=== PATIENT | female | born 1990 | race Caucasian/White ===

== ENCOUNTER 2016-07-04 21:52 | Emergency (ER) | payer MEDICAID ==
[2016-07-04] MEDS ORDERED: Sodium Chloride 0.9% 1,000 ML IV ONE ×2 (21:58→22:42)
[2016-07-04] MEDS ORDERED: Ondansetron 4 MG/2 ML SDV IV ONE (22:04)
[2016-07-04 22:07] VITALS: BP 110/75
[2016-07-04 22:36] LABS: CHLORIDE,CL 105 mmol/L (101-111); SODIUM,NA 135 mmol/L (135-145)
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
[2016-07-04] MEDS ORDERED: Famotidine 20 MG/2 ML SDV IVPUSH ONE (23:13)
[2016-07-04] MEDS ORDERED: Loperamide 2 MG Cap PO ONE (23:14)
[2016-07-04] MEDS ORDERED: Ondansetron 4 MG Tab.DIS PO ONE (23:34)
[2016-07-04] MEDS ORDERED: Ondansetron 4 MG Tab.DIS ONE (23:34)
== END 2016-07-04 23:45 | disposition home or self-care (01) ==
LOC: DL.ED 21:52
DX: K52.9 Noninfective gastroenteritis and colitis, unspecified (principal); R11.14 Bilious vomiting; F17.210 Nicotine dependence, cigarettes, uncomplicated; G89.29 Other chronic pain; M54.9 Dorsalgia, unspecified; G43.909 Migraine, unspecified, not intractable, without status migrainosus; F43.10 Post-traumatic stress disorder, unspecified; Z79.899 Other long term (current) drug therapy; Z88.8 Allergy status to other drugs, medicaments and biological substances; Z88.6 Allergy status to analgesic agent
CPT/HCPCS: 36415; 80053; 81001; 82150; 83690; 84703; 85025; 96365; 96375; 99284; A9270; J2405; J7030; S0028

== ENCOUNTER 2016-07-13 16:56 | Emergency (ER) | payer OTHER, MEDICAID ==
[2016-07-13 17:13] VITALS: BP 124/76
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
== END 2016-07-13 18:15 | disposition home or self-care (01) ==
LOC: DL.ED 16:56
DX: S23.3XXA Sprain of ligaments of thoracic spine, initial encounter (principal); S33.5XXA Sprain of ligaments of lumbar spine, initial encounter; S16.1XXA Strain of muscle, fascia and tendon at neck level, initial encounter; J45.909 Unspecified asthma, uncomplicated; K21.9 Gastro-esophageal reflux disease without esophagitis; F32.9 Major depressive disorder, single episode, unspecified; F17.210 Nicotine dependence, cigarettes, uncomplicated; Z88.6 Allergy status to analgesic agent; Z79.899 Other long term (current) drug therapy; Z98.890 Other specified postprocedural states; V43.92XA Unspecified car occupant injured in collision with other type car in traffic accident, initial encounter
CPT/HCPCS: 72040; 72070; 72100; 99283

== ENCOUNTER 2016-07-28 21:16 | Emergency (ER) | payer MEDICAID ==
[2016-07-28 21:25] VITALS: BP 122/76
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
[2016-07-28 23:05] LABS: CHLORIDE,CL 111 mmol/L (101-111); SODIUM,NA 141 mmol/L (135-145)
== END 2016-07-28 23:16 | disposition home or self-care (01) ==
LOC: DL.ED 21:16
DX: R10.33 Periumbilical pain (principal); J45.909 Unspecified asthma, uncomplicated; K21.9 Gastro-esophageal reflux disease without esophagitis; F32.9 Major depressive disorder, single episode, unspecified; F17.210 Nicotine dependence, cigarettes, uncomplicated; Z98.890 Other specified postprocedural states; Z88.6 Allergy status to analgesic agent; Z79.899 Other long term (current) drug therapy
CPT/HCPCS: 36415; 80053; 80305; 81001; 81025; 82150; 83690; 85025; 99284

== ENCOUNTER 2016-09-18 22:21 | Emergency (ER) | payer MEDICAID ==
[2016-09-18 23:42] VITALS: BP 119/72
[2016-09-19] MEDS ORDERED: Amoxicillin 500 MG Cap PO ONE (00:22)
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
== END 2016-09-19 00:36 | disposition home or self-care (01) ==
LOC: DL.ED 22:21
DX: J06.9 Acute upper respiratory infection, unspecified (principal); K21.9 Gastro-esophageal reflux disease without esophagitis; J45.909 Unspecified asthma, uncomplicated; G43.909 Migraine, unspecified, not intractable, without status migrainosus; Z79.899 Other long term (current) drug therapy; Z88.8 Allergy status to other drugs, medicaments and biological substances
CPT/HCPCS: 87081; 87430; 99283; A9270

== ENCOUNTER 2016-10-21 00:34 | Emergency (ER) | payer MEDICAID ==
[2016-10-21] MEDS ORDERED: Albuterol/Ipratropium 3.0-0.5 MG/3 ML Neb Soln NEB ONE (00:36)
[2016-10-21 00:40] VITALS: BP 125/75
[2016-10-21] MEDS ORDERED: predniSONE 10 MG Tab PO ONE (02:02)
[2016-10-21] MEDS ORDERED: Benzonatate 100 MG Cap PO ONE (02:02)
[2016-10-21] MEDS ORDERED: Azithromycin 250 MG Tab PO ONE (02:03)
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
== END 2016-10-21 02:15 | disposition home or self-care (01) ==
LOC: DL.ED 00:34
DX: J20.9 Acute bronchitis, unspecified (principal); K21.9 Gastro-esophageal reflux disease without esophagitis; J45.909 Unspecified asthma, uncomplicated; F32.9 Major depressive disorder, single episode, unspecified; G43.909 Migraine, unspecified, not intractable, without status migrainosus; Z79.899 Other long term (current) drug therapy; Z88.6 Allergy status to analgesic agent; Z98.890 Other specified postprocedural states
CPT/HCPCS: 94640; 99284; A9270

== ENCOUNTER 2016-11-22 08:44 | Emergency (ER) | payer MEDICAID ==
[2016-11-22 09:13] VITALS: BP 96/63
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
--- NOTE | 2016-11-22 09:49 | CR ---
CLINICAL HISTORY: 26-year-old female with right hand pain (injured "getting up") for the past 7 days . INTERPRETATION: Isolated tiny cyst head of the third metacarpal. No arthritic degenerative joint elsa nges. No foreign body, inflammatory periostitis, right hand or wrist fracture/dislocation. CONCLUSION: Negative exam.
== END 2016-11-22 10:23 | disposition home or self-care (01) ==
LOC: DL.ED 08:44
DX: S60.221A Contusion of right hand, initial encounter (principal); F17.210 Nicotine dependence, cigarettes, uncomplicated; K21.9 Gastro-esophageal reflux disease without esophagitis; Z98.890 Other specified postprocedural states; Z79.899 Other long term (current) drug therapy; Z88.6 Allergy status to analgesic agent; Z88.5 Allergy status to narcotic agent; W22.09XA Striking against other stationary object, initial encounter
CPT/HCPCS: 73130-RT; 99284

== ENCOUNTER 2016-12-29 22:32 | Emergency (ER) | payer MEDICAID ==
[2016-12-29 22:37] VITALS: BP 118/78
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
[2016-12-29 23:14] LABS: CHLORIDE,CL 107 mmol/L (101-111); SODIUM,NA 140 mmol/L (135-145)
== END 2016-12-29 23:36 | disposition home or self-care (01) ==
LOC: DL.ED 22:32
DX: R55 Syncope and collapse (principal); J45.909 Unspecified asthma, uncomplicated; K21.9 Gastro-esophageal reflux disease without esophagitis; F32.9 Major depressive disorder, single episode, unspecified; F43.10 Post-traumatic stress disorder, unspecified; F17.210 Nicotine dependence, cigarettes, uncomplicated; Z98.890 Other specified postprocedural states; Z79.899 Other long term (current) drug therapy; Z88.6 Allergy status to analgesic agent
CPT/HCPCS: 36415; 80053; 84703; 85025; 99284

== ENCOUNTER 2017-01-14 21:14 | Emergency (ER) | payer MEDICAID ==
[2017-01-14] MEDS ORDERED: Amoxicillin/Clavulanate K 875-125 MG Tab PO ONE (21:15)
[2017-01-14 23:31] VITALS: BP 123/76
[2017-01-15] MEDS ORDERED: Amoxicillin/Clavulanate K 875-125 MG Tab ONE (00:01)
== END 2017-01-15 00:20 | disposition home or self-care (01) ==
LOC: DL.ED 21:14
DX: J06.9 Acute upper respiratory infection, unspecified (principal)
CPT/HCPCS: 99283; A9270

== ENCOUNTER 2017-01-17 08:33 | Emergency (ER) | payer MEDICAID ==
[2017-01-17 08:48] VITALS: BP 115/70
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
== END 2017-01-17 09:11 | disposition home or self-care (01) ==
LOC: DL.ED 08:33
DX: R09.81 Nasal congestion (principal); R05 Cough; F17.210 Nicotine dependence, cigarettes, uncomplicated; G43.909 Migraine, unspecified, not intractable, without status migrainosus; Z79.899 Other long term (current) drug therapy; Z98.890 Other specified postprocedural states; Z90.49 Acquired absence of other specified parts of digestive tract
CPT/HCPCS: 99283

== ENCOUNTER 2017-01-18 17:04 | Emergency (ER) | payer MEDICAID ==
[2017-01-18 18:18] VITALS: BP 123/82
== END 2017-01-18 18:25 | disposition left against medical advice (07) ==
LOC: DL.ED 17:04
DX: Z53.20 Procedure and treatment not carried out because of patient's decision for unspecified reasons (principal)

== ENCOUNTER 2017-02-04 23:09 | Emergency (ER) | payer MEDICAID ==
[2017-02-04 23:37] VITALS: BP 121/72
[2017-02-05] MEDS ORDERED: Amoxicillin/Clavulanate K 875-125 MG Tab PO ONE (00:21)
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
== END 2017-02-05 00:28 | disposition home or self-care (01) ==
LOC: DL.ED 23:09
DX: N39.0 Urinary tract infection, site not specified (principal); J45.909 Unspecified asthma, uncomplicated; K21.9 Gastro-esophageal reflux disease without esophagitis; F32.9 Major depressive disorder, single episode, unspecified; F17.210 Nicotine dependence, cigarettes, uncomplicated; Z98.890 Other specified postprocedural states; Z79.899 Other long term (current) drug therapy; Z88.6 Allergy status to analgesic agent
CPT/HCPCS: 81001; 81025; 87086; 99283; A9270; 87077; 87186

== ENCOUNTER 2017-03-21 17:10 | Emergency (ER) | payer MEDICAID ==
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
[2017-03-21 18:02] VITALS: BP 126/86
== END 2017-03-21 18:36 | disposition home or self-care (01) ==
LOC: DL.ED 17:10
DX: N76.1 Subacute and chronic vaginitis (principal); F17.210 Nicotine dependence, cigarettes, uncomplicated; Z88.6 Allergy status to analgesic agent; Z88.5 Allergy status to narcotic agent
CPT/HCPCS: 81001; 81025; 87070; 87210; 99283

== ENCOUNTER 2017-03-30 20:57 | Emergency (ER) | payer MEDICAID ==
[2017-03-30] MEDS ORDERED: traMADol 50 MG Tab PO ONE (20:58)
[2017-03-30 21:24] VITALS: BP 121/70
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
[2017-03-30] MEDS ORDERED: traMADol 50 MG Tab ONE (22:29)
== END 2017-03-30 22:40 | disposition home or self-care (01) ==
LOC: DL.ED 20:57
DX: S93.401A Sprain of unspecified ligament of right ankle, initial encounter (principal); F17.210 Nicotine dependence, cigarettes, uncomplicated; Z88.5 Allergy status to narcotic agent; Z79.899 Other long term (current) drug therapy; X50.1XXA Overexertion from prolonged static or awkward postures, initial encounter
CPT/HCPCS: 73600-RT; 99283; A9270-GY

== ENCOUNTER 2017-04-07 19:12 | Emergency (ER) | payer MEDICAID ==
[2017-04-07 20:42] VITALS: BP 118/73
== END 2017-04-07 22:00 | disposition left against medical advice (07) ==
LOC: DL.ED 19:12
DX: Z53.21 Procedure and treatment not carried out due to patient leaving prior to being seen by health care provider (principal)

== ENCOUNTER 2017-04-08 10:00 | Emergency (ER) | payer MEDICAID ==
[2017-04-08 10:07] VITALS: BP 126/71
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
--- NOTE | 2017-04-08 11:27 | CR ---
CLINICAL HISTORY: 26-year-old female with left ankle and foot pain (injury). INTERPRETATION: Three views left foot reveal no sign of fracture or joint dislocation. No foreign bodies.
--- NOTE | 2017-04-08 11:28 | CR ---
CLINICAL HISTORY: 26-year-old female with left ankle pain (injury). INTERPRETATION: Three views left ankle unremarkable. Minimal soft tissue swelling and no appreciable ankle effusion. No sign of left ankle fracture or dislocation.
== END 2017-04-08 11:36 | disposition home or self-care (01) ==
LOC: DL.ED 10:00
DX: S93.402A Sprain of unspecified ligament of left ankle, initial encounter (principal); S90.32XA Contusion of left foot, initial encounter; K21.9 Gastro-esophageal reflux disease without esophagitis; F17.210 Nicotine dependence, cigarettes, uncomplicated; Z79.899 Other long term (current) drug therapy; Z88.6 Allergy status to analgesic agent; W22.8XXA Striking against or struck by other objects, initial encounter; Y92.89 Other specified places as the place of occurrence of the external cause
CPT/HCPCS: 73610-LT; 73630-LT; 99283

== ENCOUNTER 2017-04-26 21:20 | Emergency (ER) | payer MEDICAID ==
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
[2017-04-26 22:52] VITALS: BP 105/53
== END 2017-04-26 23:24 | disposition home or self-care (01) ==
LOC: DL.ED 21:20
DX: G43.909 Migraine, unspecified, not intractable, without status migrainosus (principal); J45.909 Unspecified asthma, uncomplicated; K21.9 Gastro-esophageal reflux disease without esophagitis; F32.9 Major depressive disorder, single episode, unspecified; F17.210 Nicotine dependence, cigarettes, uncomplicated; Z79.899 Other long term (current) drug therapy; Z88.6 Allergy status to analgesic agent
CPT/HCPCS: 81003; 81025; 99282

== ENCOUNTER 2017-05-03 23:16 | Emergency (ER) | payer MEDICAID ==
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
[2017-05-04 00:26] VITALS: BP 116/73
== END 2017-05-04 01:12 | disposition home or self-care (01) ==
LOC: DL.ED 23:16
DX: N93.8 Other specified abnormal uterine and vaginal bleeding (principal); F17.210 Nicotine dependence, cigarettes, uncomplicated; Z88.5 Allergy status to narcotic agent; Z88.8 Allergy status to other drugs, medicaments and biological substances; Z79.899 Other long term (current) drug therapy
CPT/HCPCS: 36415; 84703; 85025; 99283

== ENCOUNTER 2017-05-06 20:31 | Emergency (ER) | payer MEDICAID ==
[2017-05-06 20:44] VITALS: BP 117/75
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
[2017-05-06 21:42] LABS: ANION GAP 15.6; CHLORIDE,CL 103 mmol/L (101-111); SODIUM,NA 136 mmol/L (135-145)
== END 2017-05-06 22:09 | disposition home or self-care (01) ==
LOC: DL.ED 20:31
DX: R10.30 Lower abdominal pain, unspecified (principal); J45.909 Unspecified asthma, uncomplicated; K21.9 Gastro-esophageal reflux disease without esophagitis; F32.9 Major depressive disorder, single episode, unspecified; F17.210 Nicotine dependence, cigarettes, uncomplicated; Z79.899 Other long term (current) drug therapy; Z88.6 Allergy status to analgesic agent
CPT/HCPCS: 36415; 80053; 81001; 84703; 85025; 99283

== ENCOUNTER 2017-05-24 11:52 | Emergency (ER) | payer MEDICAID ==
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
[2017-05-24 14:26] VITALS: BP 111/67
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
== END 2017-05-24 14:34 | disposition home or self-care (01) ==
LOC: DL.ED 11:52
DX: S80.01XA Contusion of right knee, initial encounter (principal); S30.0XXA Contusion of lower back and pelvis, initial encounter; J45.909 Unspecified asthma, uncomplicated; K21.9 Gastro-esophageal reflux disease without esophagitis; F32.9 Major depressive disorder, single episode, unspecified; F17.210 Nicotine dependence, cigarettes, uncomplicated; Z79.899 Other long term (current) drug therapy; Z88.6 Allergy status to analgesic agent; Y04.0XXA Assault by unarmed brawl or fight, initial encounter
CPT/HCPCS: 72100; 73564-RT; 99284

== ENCOUNTER 2017-05-29 12:32 | Emergency (ER) | payer MEDICAID ==
[2017-05-29] MEDS ORDERED: Sodium Chloride 0.9% 1,000 ML IV ONE (13:04)
[2017-05-29 13:36] LABS: ANION GAP 11.5; CHLORIDE,CL 105 mmol/L (101-111); SODIUM,NA 136 mmol/L (135-145)
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
[2017-05-29 15:24] VITALS: BP 104/60
--- NOTE | 2017-06-24 10:52 | EKG ---
05/29/2017 - MARCIO OLIVARES - EKG is sinus rhythm with a rate of 94. Normal AR interval, normal axis. EKG is within normal limits. [facility] /[id number]
== END 2017-05-29 15:22 | disposition home or self-care (01) ==
LOC: DL.ED 12:32
DX: O99.89 Other specified diseases and conditions complicating pregnancy, childbirth and the puerperium (principal); R55 Syncope and collapse; O99.331 Smoking (tobacco) complicating pregnancy, first trimester; F17.210 Nicotine dependence, cigarettes, uncomplicated; Z88.5 Allergy status to narcotic agent; Z88.8 Allergy status to other drugs, medicaments and biological substances; Z79.899 Other long term (current) drug therapy
CPT/HCPCS: 36415; 80053; 80305; 81001; 84702; 84703; 85025; 93005; 99284; J7030

== ENCOUNTER 2017-06-03 19:20 | Emergency (ER) | payer MEDICAID ==
[2017-06-03 23:45] VITALS: BP 115/68
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
== END 2017-06-03 23:54 | disposition home or self-care (01) ==
LOC: DL.ED 19:20
DX: O20.0 Threatened abortion (principal); O99.612 Diseases of the digestive system complicating pregnancy, second trimester; K21.9 Gastro-esophageal reflux disease without esophagitis; O99.512 Diseases of the respiratory system complicating pregnancy, second trimester; J45.909 Unspecified asthma, uncomplicated; O99.332 Smoking (tobacco) complicating pregnancy, second trimester; F17.210 Nicotine dependence, cigarettes, uncomplicated; Z3A.19 19 weeks gestation of pregnancy; Z79.899 Other long term (current) drug therapy; Z88.6 Allergy status to analgesic agent
CPT/HCPCS: 36415; 80305; 81001; 81025; 84702; 84703; 85025; 99284

== ENCOUNTER 2017-06-20 12:37 | Emergency (ER) | payer MEDICAID ==
[2017-06-20 13:13] VITALS: BP 106/68
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
== END 2017-06-20 14:12 | disposition home or self-care (01) ==
LOC: DL.ED 12:37
DX: F32.9 Major depressive disorder, single episode, unspecified (principal); F17.210 Nicotine dependence, cigarettes, uncomplicated; Z88.5 Allergy status to narcotic agent; Z88.8 Allergy status to other drugs, medicaments and biological substances
CPT/HCPCS: 99284

== ENCOUNTER 2017-06-27 22:38 | Emergency (ER) | payer MEDICAID ==
[2017-06-27 23:00] VITALS: BP 125/73
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
== END 2017-06-28 01:03 | disposition home or self-care (01) ==
LOC: DL.ED 22:38
DX: R42 Dizziness and giddiness (principal); R10.13 Epigastric pain; F17.210 Nicotine dependence, cigarettes, uncomplicated; Z88.5 Allergy status to narcotic agent; Z88.8 Allergy status to other drugs, medicaments and biological substances
CPT/HCPCS: 36415; 84703; 85014; 85018; 99283

== ENCOUNTER 2017-07-17 23:53 | Emergency (ER) | payer MEDICAID ==
[2017-07-18 00:01] VITALS: BP 106/86
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
== END 2017-07-18 01:26 | disposition home or self-care (01) ==
LOC: DL.ED 23:53
DX: O99.89 Other specified diseases and conditions complicating pregnancy, childbirth and the puerperium (principal); R42 Dizziness and giddiness; O99.331 Smoking (tobacco) complicating pregnancy, first trimester; F17.210 Nicotine dependence, cigarettes, uncomplicated; Z88.6 Allergy status to analgesic agent; Z88.5 Allergy status to narcotic agent; Z79.899 Other long term (current) drug therapy; Z3A.01 Less than 8 weeks gestation of pregnancy
CPT/HCPCS: 36415; 81001; 81025; 85014; 85018; 99284

== ENCOUNTER 2017-08-11 23:34 | Emergency (ER) | payer MEDICAID ==
[2017-08-12] MEDS ORDERED: Sodium Chloride 0.9% 10 ML Syringe FLUSH PRN (01:36)
[2017-08-12] MEDS ORDERED: Metoclopramide 10 MG/2 ML SDV IVPUSH ONE (01:36)
[2017-08-12] MEDS ORDERED: Acetaminophen 325 MG Tab PO ONE (01:37)
[2017-08-12] MEDS ORDERED: Sodium Chloride 0.9% 1,000 ML IV ONE (01:38)
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
[2017-08-12 02:32] VITALS: BP 100/51
== END 2017-08-12 02:36 | disposition home or self-care (01) ==
LOC: DL.ED 23:34
DX: O99.89 Other specified diseases and conditions complicating pregnancy, childbirth and the puerperium (principal); R51 Headache; O99.611 Diseases of the digestive system complicating pregnancy, first trimester; K21.9 Gastro-esophageal reflux disease without esophagitis; O99.331 Smoking (tobacco) complicating pregnancy, first trimester; F17.210 Nicotine dependence, cigarettes, uncomplicated; Z88.6 Allergy status to analgesic agent; Z88.5 Allergy status to narcotic agent; Z79.899 Other long term (current) drug therapy; Z3A.09 9 weeks gestation of pregnancy
CPT/HCPCS: 96361; 96374; 99283; A9270; J2765; J7030

== ENCOUNTER 2017-08-30 22:39 | Emergency (ER) | payer MEDICAID ==
[2017-08-30 22:56] VITALS: BP 117/83
[2017-08-30] MEDS ORDERED: Acetaminophen 325 MG Tab PO ONE (23:03)
--- NOTE | 2017-08-31 06:13 | ER ---
SUBJECTIVE: The patient is a 26-year-old female, who was at home climbing down some stairs and she missed the last step or so, she injured her left ankle. It has some tenderness and swelling mostly laterally. She denies any head trauma, chest trauma, back trauma, upper extremity trauma. No bleeding. No loss of consciousness. She is . She does not take any medicines. She has no vaginal bleeding or discharge or any problems in that regard. PAST MEDICAL HISTORY: Significant for: 1. GERD. 2. . 3. T and A. 4. Had her wisdom teeth pulled. 5. Asthma. 6. History of kidney stones. 7. Migraine headaches. CURRENT MEDICATIONS: Include: 1. Omeprazole 20 mg p.o. daily. 2. vitamins. ALLERGIES: 1. Ibuprofen gives her headache. 2. Percocet gives her headache. REVIEW OF SYSTEMS: No chest pain, shortness of breath. No nausea, vomiting, fevers. No recent infection. No bleeding. No bowel or bladder changes. No vaginal bleeding or discharge. After fall, she is here for her left ankle pain. Please see HPI. SOCIAL HISTORY: She does use cigarettes, and uses soda. OBJECTIVE: Vital Signs: Stable. She is afebrile. General: Pleasant, good historian. There is ice on her left ankle now when she comes in. She is laughing, smiling, in no distress. HEENT: Normocephalic, atraumatic. Extremities: Focused examination of her lower extremities, shows the left mostly lateral ankle somewhat tender. There is no deformity. No crepitus. She has good pulses. Good capillary refill. Wiggles her toes. Her calf is nontender. Knee is nontender. The head of the metatarsal and sole of the foot are nontender. IMAGING: X-ray is obtained. There is no fracture or deformity or dislocation. ASSESSMENT: Left ankle sprain. PLAN: Rest, ice, compression. She can take Tylenol for meds. Followup with her PCP in clinic as needed. [facility] /[id number]
== END 2017-08-30 23:52 | disposition home or self-care (01) ==
LOC: DL.ED 22:39
DX: O9A.211 Injury, poisoning and certain other consequences of external causes complicating pregnancy, first trimester (principal); S93.402A Sprain of unspecified ligament of left ankle, initial encounter; O99.331 Smoking (tobacco) complicating pregnancy, first trimester; F17.210 Nicotine dependence, cigarettes, uncomplicated; W10.9XXA Fall (on) (from) unspecified stairs and steps, initial encounter; Z88.6 Allergy status to analgesic agent; Z3A.11 11 weeks gestation of pregnancy
CPT/HCPCS: 73610-LT; 99283; A9270-GY

== ENCOUNTER 2017-10-06 22:15 | Emergency (ER) | payer MEDICAID ==
[2017-10-06 22:40] VITALS: BP 98/54
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
== END 2017-10-07 00:28 | disposition home or self-care (01) ==
LOC: DL.ED 22:15
DX: O9A.212 Injury, poisoning and certain other consequences of external causes complicating pregnancy, second trimester (principal); S93.401A Sprain of unspecified ligament of right ankle, initial encounter; O99.332 Smoking (tobacco) complicating pregnancy, second trimester; F17.210 Nicotine dependence, cigarettes, uncomplicated; W18.40XA Slipping, tripping and stumbling without falling, unspecified, initial encounter; Z88.6 Allergy status to analgesic agent; Z88.8 Allergy status to other drugs, medicaments and biological substances; Z3A.17 17 weeks gestation of pregnancy
CPT/HCPCS: 73600-RT; 99283

== ENCOUNTER 2017-11-17 18:03 | Emergency (ER) | payer MEDICAID ==
[2017-11-17 18:45] VITALS: BP 112/59
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
== END 2017-11-17 20:55 | disposition home or self-care (01) ==
LOC: DL.ED 18:03
DX: S93.432A Sprain of tibiofibular ligament of left ankle, initial encounter (principal); F17.210 Nicotine dependence, cigarettes, uncomplicated; X50.1XXA Overexertion from prolonged static or awkward postures, initial encounter; Z88.6 Allergy status to analgesic agent
CPT/HCPCS: 73610-LT; 99283

== ENCOUNTER 2018-01-21 16:27 | Emergency (ER) | payer MEDICAID ==
[2018-01-21 16:55] VITALS: BP 111/58
[2018-01-21] MEDS ORDERED: Bacitracin Oint 1 GM U/D Packet TOP ONE (17:01)
[2018-01-21] MEDS ORDERED: Acetaminophen 325 MG Tab PO ONE (17:12)
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
== END 2018-01-21 17:36 | disposition home or self-care (01) ==
LOC: DL.ED 16:27
DX: S61.432A Puncture wound without foreign body of left hand, initial encounter (principal); F17.210 Nicotine dependence, cigarettes, uncomplicated; Z88.6 Allergy status to analgesic agent; W26.8XXA Contact with other sharp object(s), not elsewhere classified, initial encounter
CPT/HCPCS: 99282; A9270

== ENCOUNTER 2018-02-07 12:14 | Emergency (ER) | payer MEDICAID ==
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
[2018-02-07 12:24] VITALS: BP 109/71
== END 2018-02-07 12:53 | disposition home or self-care (01) ==
LOC: DL.ED 12:14
DX: O99.513 Diseases of the respiratory system complicating pregnancy, third trimester (principal); J20.8 Acute bronchitis due to other specified organisms; J02.8 Acute pharyngitis due to other specified organisms; J45.909 Unspecified asthma, uncomplicated; O99.613 Diseases of the digestive system complicating pregnancy, third trimester; K21.9 Gastro-esophageal reflux disease without esophagitis; O99.333 Smoking (tobacco) complicating pregnancy, third trimester; F17.210 Nicotine dependence, cigarettes, uncomplicated; Z88.6 Allergy status to analgesic agent; Z88.5 Allergy status to narcotic agent; Z79.899 Other long term (current) drug therapy; Z3A.28 28 weeks gestation of pregnancy
CPT/HCPCS: 99282

== ENCOUNTER 2018-10-29 23:46 | Emergency (ER) | payer MEDICAID ==
[2018-10-30 00:21] VITALS: BP 115/71
[2018-10-30 01:01] LABS: ANION GAP 13.5; CHLORIDE,CL 107 mmol/L (101-111); SODIUM,NA 137 mmol/L (135-145)
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
== END 2018-10-30 01:37 | disposition home or self-care (01) ==
LOC: DL.ED 23:46
DX: N95.1 Menopausal and female climacteric states (principal); K21.9 Gastro-esophageal reflux disease without esophagitis; F41.9 Anxiety disorder, unspecified; F17.210 Nicotine dependence, cigarettes, uncomplicated; J45.909 Unspecified asthma, uncomplicated; F32.9 Major depressive disorder, single episode, unspecified; Z79.899 Other long term (current) drug therapy; Z88.6 Allergy status to analgesic agent
CPT/HCPCS: 36415; 80048; 81001; 84443; 84703; 85025; 99283

== ENCOUNTER 2019-11-01 00:01 | Emergency (ER) | payer MEDICAID ==
[2019-11-01 00:25] VITALS: BP 115/59; PULSE 73
[2019-11-01] MEDS ORDERED: Amoxicillin/Clavulanate K 875-125 MG Tab PO ONE (00:41)
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
== END 2019-11-01 00:51 | disposition home or self-care (01) ==
LOC: DL.ED 00:01
DX: J01.91 Acute recurrent sinusitis, unspecified (principal); J45.909 Unspecified asthma, uncomplicated; K21.9 Gastro-esophageal reflux disease without esophagitis; F17.210 Nicotine dependence, cigarettes, uncomplicated; Z88.6 Allergy status to analgesic agent; Z88.5 Allergy status to narcotic agent
CPT/HCPCS: 99283; A9270-GY

== ENCOUNTER 2020-03-09 21:17 | Emergency (ER) | payer MEDICAID ==
[2020-03-09 21:41] VITALS: BP 108/72; PULSE 88
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
--- NOTE | 2020-03-09 22:56 | CT ---
PROCEDURE INFORMATION: Exam: CT Abdomen And Pelvis Without Contrast Exam date and time: 03/09/2020 10:22 PM Age: 29 years old Clinical indication: Other: Left lower abdominal pain TECHNIQUE: Imaging protocol: Computed tomography of the abdomen and pelvis without contrast. Radiation optimization: All CT scans at this facility use at least one of these dose optimization techniques: automated exposure control; mA and/or kV adjustment per patient size (includes targeted exams where dose is matched to clinical indication); or iterative reconstruction. COMPARISON: No relevant prior studies available. FINDINGS: Lungs: The visualized lung bases are clear. Liver: The liver is normal. Gallbladder and bile ducts: The gallbladder is contracted. There is no evidence of biliary ductal dilation. Pancreas: The pancreas is normal. Spleen: The spleen is normal. Adrenal glands: The adrenal glands are normal. Kidneys and ureters: The kidneys are normal. No hydronephrosis. No visible calculi. Stomach and bowel: There is a moderate amount of colonic content identified. Changes regarding the colon are equivocal. There is the suggestion of very mild wall thickening. This questionable abnormality involves the distal transverse and left colon. There is no evidence of colonic diverticulosis. Non-specific/nonobstructive intestinal gas pattern. Appendix: A normal appendix is identified. Intraperitoneal space: No free air. No free fluid. Vasculature: There is no aortic aneurysm. Lymph nodes: No pelvic adenopathy. There is no adenopathy. Urinary bladder: Bladder is normal. Reproductive: The uterus is normal. No adnexal mass. Bones/joints: No acute bony findings are identified. Soft tissues: No acute soft tissue abnormalities are identified. IMPRESSION: 1. Changes regarding the distal transverse and left colon are equivocal. This may merely reflect incomplete distention. Subtle diffuse nonspecific colitis however cannot be ruled out entirely. Correlate with clinical data. Potential etiologies would include infectious processes, inflammatory processes, as well as ischemic etiologies. 2. A normal appendix is identified. 3. There is no evidence of colonic diverticulosis.
[2020-03-09 22:59] LABS: ANION GAP 13.7 mEq/L (7-13); CHLORIDE,CL 103 mmol/L (98-107); SODIUM,NA 139 mmol/L (136-145)
== END 2020-03-09 23:26 | disposition home or self-care (01) ==
LOC: DL.ED 21:17
DX: K29.00 Acute gastritis without bleeding (principal); J45.909 Unspecified asthma, uncomplicated; F17.210 Nicotine dependence, cigarettes, uncomplicated; Z88.6 Allergy status to analgesic agent; Z88.5 Allergy status to narcotic agent
CPT/HCPCS: 36415; 74176; 80053; 81001; 83605; 85025; 87040; 99284-25

== ENCOUNTER 2020-06-22 20:01 | Emergency (ER) | payer MEDICAID ==
[2020-06-22 20:29] VITALS: BP 106/70; PULSE 95
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
== END 2020-06-22 21:31 | disposition home or self-care (01) ==
LOC: DL.ED 20:01
DX: S60.221A Contusion of right hand, initial encounter (principal); J45.909 Unspecified asthma, uncomplicated; K21.9 Gastro-esophageal reflux disease without esophagitis; Z72.0 Tobacco use; Z88.6 Allergy status to analgesic agent; Z88.8 Allergy status to other drugs, medicaments and biological substances; Z79.899 Other long term (current) drug therapy; W22.8XXA Striking against or struck by other objects, initial encounter
CPT/HCPCS: 73130-RT; 99283

== ENCOUNTER 2020-06-29 15:21 | Emergency (ER) | payer MEDICAID ==
[2020-06-29 15:53] VITALS: BP 110/70; PULSE 71
== END 2020-06-29 18:18 | disposition left against medical advice (07) ==
LOC: DL.ED 15:21
DX: Z53.21 Procedure and treatment not carried out due to patient leaving prior to being seen by health care provider (principal)
CPT/HCPCS: 81001

== ENCOUNTER 2020-07-10 09:42 | Emergency (ER) | payer MEDICAID, OTHER ==
[2020-07-10 09:55] VITALS: BP 120/87; PULSE 102
[2020-07-10] MEDS ORDERED: Ondansetron 4 MG Tab.DIS PO ONE (09:56)
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
== END 2020-07-10 10:16 | disposition home or self-care (01) ==
LOC: DL.ED 09:42
DX: K52.9 Noninfective gastroenteritis and colitis, unspecified (principal); J45.909 Unspecified asthma, uncomplicated; K21.9 Gastro-esophageal reflux disease without esophagitis; G43.909 Migraine, unspecified, not intractable, without status migrainosus; Z79.899 Other long term (current) drug therapy; Z88.6 Allergy status to analgesic agent; Z88.5 Allergy status to narcotic agent
CPT/HCPCS: 99283; A9270; 99282

== ENCOUNTER 2020-08-02 11:50 | Emergency (ER) | payer MEDICAID, OTHER ==
[2020-08-02 12:06] VITALS: BP 106/76; PULSE 81
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
--- NOTE | 2020-08-02 12:51 | CR ---
PROCEDURE INFORMATION: Exam: XR Right Ankle Exam date and time: 08/02/2020 12:23 PM Age: 29 years old Clinical indication: Other: Foot and ankle pain after fall TECHNIQUE: Imaging protocol: XR Right ankle. Views: 1 or 2 views. COMPARISON: CR Ankle 2V Rt 10/06/2017 11:31 PM FINDINGS: Bones/joints: Normal. Soft tissues: Normal. IMPRESSION: No acute findings.
--- NOTE | 2020-08-02 12:52 | CR ---
PROCEDURE INFORMATION: Exam: XR Right Foot Exam date and time: 08/02/2020 12:28 PM Age: 29 years old Clinical indication: Other: Foot and ankle pain after fall TECHNIQUE: Imaging protocol: XR Right foot. Views: 1 or 2 views. COMPARISON: CR Ankle 2V Rt 08/02/2020 12:23 PM FINDINGS: Bones/joints: Normal. Soft tissues: Normal. IMPRESSION: No acute findings.
== END 2020-08-02 13:20 | disposition home or self-care (01) ==
LOC: DL.ED 11:50
DX: S93.401A Sprain of unspecified ligament of right ankle, initial encounter (principal); J45.909 Unspecified asthma, uncomplicated; K21.9 Gastro-esophageal reflux disease without esophagitis; Z72.0 Tobacco use; Z88.6 Allergy status to analgesic agent; Z88.5 Allergy status to narcotic agent; Z79.899 Other long term (current) drug therapy; X50.1XXA Overexertion from prolonged static or awkward postures, initial encounter; Y93.01 Activity, walking, marching and hiking; Y92.009 Unspecified place in unspecified non-institutional (private) residence as the place of occurrence of the external cause
CPT/HCPCS: 73600-RT; 73620-RT; 99283; 99284-25

== ENCOUNTER 2020-11-27 09:55 | Emergency (ER) | payer MEDICAID ==
[2020-11-27 10:08] VITALS: BP 126/71; PULSE 86
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
[2020-11-27 10:40] LABS: ANION GAP 17.2 mEq/L (7-13); CHLORIDE,CL 105 mmol/L (98-107); SODIUM,NA 142 mmol/L (136-145)
[2020-11-27] MEDS ORDERED: Sodium Chloride 0.9% 1,000 ML IV ONE (10:41)
--- NOTE | 2020-11-27 13:28 | CT ---
PROCEDURE INFORMATION: Exam: CT Abdomen And Pelvis Without Contrast Exam date and time: 11/27/2020 12:30 PM Age: 30 years old Clinical indication: Abdominal pain; Localized; Left lower quadrant (llq); Additional info: Left lower abdominal pain TECHNIQUE: Imaging protocol: Computed tomography of the abdomen and pelvis without contrast. Radiation optimization: All CT scans at this facility use at least one of these dose optimization techniques: automated exposure control; mA and/or kV adjustment per patient size (includes targeted exams where dose is matched to clinical indication); or iterative reconstruction. COMPARISON: CT Abdomen Pelvis wo Cont 11/04/2020 9:53 AM FINDINGS: Liver: Normal. No mass. Gallbladder and bile ducts: Normal. No calcified stones. No ductal dilation. Pancreas: Normal. No ductal dilation. Spleen: Normal. No splenomegaly. Adrenal glands: Normal. No mass. Kidneys and ureters: Normal. No hydronephrosis. Stomach and bowel: Large amount of stool in the colon. Appendix: No evidence of appendicitis. Intraperitoneal space: Small amount of free fluid in the pelvis. Vasculature: Unremarkable. No abdominal aortic aneurysm. Lymph nodes: Unremarkable. No enlarged lymph nodes. Urinary bladder: Unremarkable as visualized. Reproductive: 3 cm cyst in the left ovary with hemorrhagic content, consistent with hemorrhagic cyst. The left ovary is located in the more anterior left lower quadrant. Bones/joints: Unremarkable. No acute fracture. Soft tissues: Unremarkable. IMPRESSION: 1. Findings suggesting 3 cm hemorrhagic cyst left ovary which is located in the anterior aspect of the left lower quadrant with a small amount of free fluid in the pelvis 2. Constipation
== END 2020-11-27 13:40 | disposition home or self-care (01) ==
LOC: DL.ED 09:55
DX: N83.202 Unspecified ovarian cyst, left side (principal); K59.00 Constipation, unspecified; J45.909 Unspecified asthma, uncomplicated; K21.9 Gastro-esophageal reflux disease without esophagitis; Z72.0 Tobacco use; Z88.6 Allergy status to analgesic agent; Z88.5 Allergy status to narcotic agent; Z88.8 Allergy status to other drugs, medicaments and biological substances; Z79.899 Other long term (current) drug therapy
CPT/HCPCS: 36415; 74176; 80053; 81001; 85025; 99283; 99284; J7030

== ENCOUNTER 2021-01-22 14:10 | Emergency (ER) | payer MEDICAID ==
[2021-01-22 14:42] VITALS: BP 109/74; PULSE 93
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
[2021-01-22] MEDS: Acetaminophen 500 MG Tab PO ONE (19:16)
[2021-01-22] MEDS: Benzonatate 100 MG Cap PO ONE (20:12)
--- NOTE | 2021-01-22 20:27 | CR ---
PROCEDURE INFORMATION: Exam: XR Right Shoulder Exam date and time: 01/22/2021 7:04 PM Age: 30 years old Clinical indication: Other: Pain; Additional info: Fall from hover board 3 weeks ago TECHNIQUE: Imaging protocol: XR Right shoulder. Views: 2 or more views. COMPARISON: No relevant prior studies available. FINDINGS: Bones/joints: There is no evidence of acute fracture. There is no evidence of joint malalignment or dislocation. Soft tissues: There are no soft tissue masses or fluid collections. IMPRESSION: 1. No evidence of acute fracture. 2. No evidence of acute dislocation.
--- NOTE | 2021-01-22 20:28 | CR ---
PROCEDURE INFORMATION: Exam: XR Right Elbow Exam date and time: 01/22/2021 7:07 PM Age: 30 years old Clinical indication: Other: Pain; Additional info: Fall from hover board 3 weeks ago TECHNIQUE: Imaging protocol: XR Right elbow. Views: 3 or more views. COMPARISON: CR Shoulder Comp Rt 01/22/2021 7:04 PM FINDINGS: Bones/joints: There is no evidence of acute fracture. There is no evidence of joint malalignment or dislocation. Soft tissues: There are no soft tissue masses or fluid collections. IMPRESSION: 1. No evidence of acute fracture. 2. No evidence of acute dislocation.
== END 2021-01-22 20:09 | disposition home or self-care (01) ==
LOC: DL.ED 14:10
DX: J06.9 Acute upper respiratory infection, unspecified (principal); M25.511 Pain in right shoulder; M25.521 Pain in right elbow; Z88.8 Allergy status to other drugs, medicaments and biological substances; Z79.899 Other long term (current) drug therapy; W19.XXXA Unspecified fall, initial encounter
CPT/HCPCS: 73030; 73080; 99283; A9270

== ENCOUNTER 2021-02-04 12:56 | Emergency (ER) | payer MEDICAID ==
[2021-02-04] MEDS ORDERED: Lidocaine 1% 30 ML SDV INJECT ONE (15:01)
[2021-02-04] MEDS ORDERED: Bacitracin Oint 1 GM U/D Packet TOP ONE (15:01)
[2021-02-04] MEDS ORDERED: Diphtheria,Pertussis(Acell),Tetanus Vaccine 0.5 ML Syringe IM ONE (15:04)
[2021-02-04 15:12] VITALS: BP 121/94; PULSE 71
--- NOTE | 2021-02-04 16:05 | CR ---
PROCEDURE INFORMATION: Exam: XR Right Hand Exam date and time: 02/04/2021 3:04 PM Age: 30 years old Clinical indication: Other: Pain--punched window; Additional info: R hand pain after punchin window. TECHNIQUE: Imaging protocol: XR Right hand. Views: 3 or more views. COMPARISON: CR Elbow Min 3V Rt 01/22/2021 7:07 PM FINDINGS: Bones/joints: The alignment of the joints is anatomic and the joint spaces are maintained. There is no evidence of acute fracture. There is a small linear radiodensity measuring about 2 mm in length near the head of the 2nd metacarpal. A small foreign body is not excluded. Soft tissues: No soft tissue swelling is identified. IMPRESSION: 1. No acute bony abnormality. 2. Questionable very small radiopaque foreign body near the head of the 2nd metacarpal.
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
[2021-02-04] MEDS ORDERED: Acetaminophen 325 MG Tab PO ONE (16:52)
[2021-02-04] MEDS ORDERED: Ketorolac 10 MG Tab PO ONE (16:53)
== END 2021-02-04 17:20 | disposition home or self-care (01) ==
LOC: DL.ED 12:56
DX: S61.411A Laceration without foreign body of right hand, initial encounter (principal); J45.909 Unspecified asthma, uncomplicated; K21.9 Gastro-esophageal reflux disease without esophagitis; Z72.0 Tobacco use; Z88.6 Allergy status to analgesic agent; Z88.5 Allergy status to narcotic agent; Z88.8 Allergy status to other drugs, medicaments and biological substances; Z79.899 Other long term (current) drug therapy; W22.8XXA Striking against or struck by other objects, initial encounter
CPT/HCPCS: 12002; 73130; 99283; A9270

== ENCOUNTER 2021-02-08 23:17 | Emergency (ER) | payer MEDICAID ==
[2021-02-08 23:44] VITALS: BP 122/88; PULSE 72
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
[2021-02-09] MEDS ORDERED: Ketorolac 30 MG/ML SDV IM ONE (00:19)
== END 2021-02-09 00:36 | disposition home or self-care (01) ==
LOC: DL.ED 23:17
DX: G89.29 Other chronic pain (principal); M25.511 Pain in right shoulder; J45.909 Unspecified asthma, uncomplicated; K21.9 Gastro-esophageal reflux disease without esophagitis; Z72.0 Tobacco use; Z88.6 Allergy status to analgesic agent; Z88.5 Allergy status to narcotic agent; Z88.8 Allergy status to other drugs, medicaments and biological substances; Z79.899 Other long term (current) drug therapy
CPT/HCPCS: 99282; 99283

== ENCOUNTER 2021-05-15 10:41 | Emergency (ER) | payer MEDICAID ==
[2021-05-15 11:01] VITALS: BP 102/69; PULSE 109
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
[2021-05-15 12:03] LABS: RESPIRATORY SYNCYTIAL VIR NAA NEGATIVE (NEGATIVE)
[2021-05-15 12:06] LABS: CORONAVIRUS COVID-19 NAA POSITIVE (NEGATIVE)
== END 2021-05-15 12:50 | disposition home or self-care (01) ==
LOC: DL.ED 10:41
DX: U07.1 COVID-19 (principal); J45.909 Unspecified asthma, uncomplicated; K21.9 Gastro-esophageal reflux disease without esophagitis; Z72.0 Tobacco use; Z88.6 Allergy status to analgesic agent; Z88.5 Allergy status to narcotic agent; Z88.8 Allergy status to other drugs, medicaments and biological substances; Z79.899 Other long term (current) drug therapy
CPT/HCPCS: 0241U; 99283

== ENCOUNTER 2021-09-14 06:53 | Emergency (ER) | payer MEDICAID, OTHER ==
[2021-09-14 07:13] VITALS: BP 113/76; PULSE 96
== END 2021-09-14 09:01 | disposition home or self-care (01) ==
LOC: DL.ED 06:53
DX: N39.0 Urinary tract infection, site not specified (principal); K21.9 Gastro-esophageal reflux disease without esophagitis; Z88.5 Allergy status to narcotic agent; Z79.899 Other long term (current) drug therapy
CPT/HCPCS: 74176; 81001; 81025; 87086; 87088; 87186; 87491; 87563; 87591; 99284; 99284-25

== ENCOUNTER 2021-12-10 23:40 | Emergency (ER) | payer MEDICAID ==
[2021-12-10 23:52] VITALS: BP 113/64; PULSE 69
[2021-12-11] MEDS ORDERED: guaiFENesin 100 MG/5 ML Soln 5 ML UD Cup PO ONE (00:07)
[2021-12-11] MEDS ORDERED: Benzonatate 100 MG Cap PO ONE (00:08)
== END 2021-12-11 00:52 | disposition home or self-care (01) ==
LOC: DL.ED 23:40
DX: J40 Bronchitis, not specified as acute or chronic (principal); K21.9 Gastro-esophageal reflux disease without esophagitis; F17.210 Nicotine dependence, cigarettes, uncomplicated; Z88.6 Allergy status to analgesic agent; Z88.5 Allergy status to narcotic agent; Z88.8 Allergy status to other drugs, medicaments and biological substances; Z79.899 Other long term (current) drug therapy; Z20.822 Contact with and (suspected) exposure to COVID-19
CPT/HCPCS: 87635; 99282; 99284; A9270; U0002

== ENCOUNTER 2021-12-28 09:33 | Emergency (ER) | payer MEDICAID ==
[2021-12-28 10:49] LABS: CORONAVIRUS COVID-19 NAA NEGATIVE (NEGATIVE)
[2021-12-28 11:22] VITALS: BP 114/72; PULSE 60
[2021-12-28] MEDS ORDERED: Ondansetron 4 MG Tab.DIS PO ONE (11:52)
[2021-12-28 12:14] LABS: ANION GAP 15.9 mEq/L (7-13)
== END 2021-12-28 12:50 | disposition home or self-care (01) ==
LOC: DL.ED 09:33
DX: R11.0 Nausea (principal); K21.9 Gastro-esophageal reflux disease without esophagitis; Z88.5 Allergy status to narcotic agent; Z88.8 Allergy status to other drugs, medicaments and biological substances; Z79.899 Other long term (current) drug therapy; Z20.822 Contact with and (suspected) exposure to COVID-19
CPT/HCPCS: 0240U; 36415; 80053; 81001; 85025; 87086; 99283; A9270-GY

== ENCOUNTER 2022-03-05 17:52 | Emergency (ER) | payer MEDICAID ==
[2022-03-05] MEDS ORDERED: Ondansetron 4 MG Tab.DIS PO ONE (17:53)
[2022-03-05] MEDS ORDERED: Sodium Chloride 0.9% 1,000 ML IV ONE (18:39)
[2022-03-05] MEDS ORDERED: Sodium Chloride 0.9% 10 ML Syringe FLUSH PRN (18:39)
[2022-03-05] MEDS ORDERED: Metoclopramide 10 MG/2 ML SDV IVPUSH ONE (18:39)
[2022-03-05] MEDS ORDERED: diphenhydrAMINE 50 MG/ML SDV IVPUSH ONE (18:39)
[2022-03-05 18:47] VITALS: BP 139/76; PULSE 56
[2022-03-05 19:03] LABS: ANION GAP 16.4 mEq/L (7-13); CHLORIDE,CL 105 mmol/L (98-107); SODIUM,NA 143 mmol/L (136-145)
[2022-03-05 19:06] LABS: ESTIMATED GFR 89 mL/min (>=60)
[2022-03-05] MEDS ORDERED: Ondansetron 4 MG Tab.DIS ONE (20:52)
== END 2022-03-05 20:50 | disposition home or self-care (01) ==
LOC: DL.ED 17:52
DX: G43.909 Migraine, unspecified, not intractable, without status migrainosus (principal); F17.210 Nicotine dependence, cigarettes, uncomplicated; Z88.6 Allergy status to analgesic agent; Z88.5 Allergy status to narcotic agent; Z79.899 Other long term (current) drug therapy
CPT/HCPCS: 36415; 80053; 82150; 83690; 84703; 85025; 86140; 96361; 96374; 96375; 99283; A9270; J1200; J2765; J3490; J7030

== ENCOUNTER 2022-11-07 14:33 | Emergency (ER) | payer MEDICAID ==
[2022-11-07 16:07] VITALS: BP 105/79; PULSE 68
== END 2022-11-07 15:57 | disposition home or self-care (01) ==
LOC: DL.ED 14:33
DX: S93.402A Sprain of unspecified ligament of left ankle, initial encounter (principal); M23.92 Unspecified internal derangement of left knee; J45.909 Unspecified asthma, uncomplicated; K21.9 Gastro-esophageal reflux disease without esophagitis; Z88.8 Allergy status to other drugs, medicaments and biological substances; Z79.899 Other long term (current) drug therapy; W19.XXXA Unspecified fall, initial encounter
CPT/HCPCS: 73562-LT; 73610-LT; 99282; 99284

== ENCOUNTER 2024-11-09 15:07 | Emergency (ER) | payer MEDICAID ==
[2024-11-09 15:37] VITALS: BP 120/69; PULSE 82
== END 2024-11-09 15:42 | disposition home or self-care (01) ==
LOC: DL.ED 15:07
DX: M54.32 Sciatica, left side (principal); J45.909 Unspecified asthma, uncomplicated; K21.9 Gastro-esophageal reflux disease without esophagitis; Z88.6 Allergy status to analgesic agent; Z88.5 Allergy status to narcotic agent; Z79.899 Other long term (current) drug therapy
CPT/HCPCS: 99283